=== PATIENT | male | born 1970 | race Caucasian/White ===

== ENCOUNTER 2018-12-23 14:07 | Emergency (ER) | payer OTHER ==
[~2018-12-23] VITALS: Ht 180.3 cm; Wt 77.1 kg
[2018-12-23 15:42] VITALS: BP 142/86
[2018-12-23] MEDS ORDERED: HYDROcodone/APAP 5/325MG 1 TAB TABLET PO ONE (16:30)
[2018-12-23] MEDS ORDERED: LIDOCAINE WITH 8.4% SOD BICARB 3 ML DISP.SYRIN. INJ ONE (16:30)
--- NOTE | 2018-12-23 16:42 | RAD ---
Examination: FINGER(S) LEFT History: Thumb laceration Comparison/Correlation: None Findings: Total of 3 images of the left thumb were obtained. Laceration injury involving the soft tissues is noted at the palmar aspect of the distal phalanx of the thumb. Few punctate densities deep within the soft tissues are present. Questionable deformity of the distal phalanges of the thumb on the PA view of the hand is noted but no corresponding findings are delineated on the other projections provided. Impression: Soft tissue laceration. A few punctate densities raise question of foreign bodies or possibly bony fracture fragments as deformity of the distal bony phalanx of the thumb is questioned on a single image of the 3 provided. Electronically signed by: Misha Liriano MD (12/23/2018 4:27 PM) [facility]
[2018-12-23] MEDS ORDERED: PIPERACILLIN/TAZOBACTAM 3.375 GM in IV NORMAL SALINE 50ML 50 ML IV ONE (17:15)
[2018-12-23] MEDS ORDERED: HYDR-3164 PO (18:23)
[2018-12-23] MEDS ORDERED: CEPH500T PO (18:23)
--- NOTE | 2018-12-23 18:23 | PHYS DOC ---
Past Medical History Past Medical History: Hepatitis Past Surgical History: No Surgical History Alcohol Use: Occasionally Drug Use: Marijuana Adult General Chief Complaint Chief Complaint: LACERATION/AVULSION HPI HPI Patient is a 48 year old male patient who presents to the ED today with left thumb laceration, patient states he was working with a table saw that accidentally cut him. Patient is right-handed. Review of Systems Review of Systems Constitutional: Denies fever or chills [] Musculoskeletal: Denies back pain or joint pain [] Integument: Reports left thumb laceration Neurologic: Denies headache, focal weakness or sensory changes [] ] All other systems were reviewed and found to be within normal limits, except as documented in this note. Current Medications Current Medications Current Medications Medications (Trade) Dose Ordered Sig/Aleida Start Time Stop Time Status Last Admin Dose Admin Acetaminophen/ Hydrocodone Bitart (Lortab 5/325) 2 tab 1X ONCE 12/23/18 16:30 12/23/18 16:31 DC 12/23/18 16:33 2 TAB Lidocaine HCl (Buffered Lidocaine 1%) 6 ml 1X ONCE 12/23/18 16:30 12/23/18 16:31 DC 12/23/18 16:32 6 ML Piperacillin Sod/ Tazobactam Sod 3.375 gm/Sodium Chloride 50 ml @ 100 mls/hr 1X ONCE 12/23/18 17:15 12/23/18 17:44 DC 12/23/18 17:15 100 MLS/HR Allergies Allergies Allergies Coded Allergies Type Severity Reaction Last Updated Verified No Known Drug Allergies 12/23/18 No Physical Exam Physical Exam Constitutional: Well developed, well nourished, no acute distress, non-toxic appearance. [] Skin: Left ventral thumb but distal and with a laceration approximately 3 cm long, there is no obvious tendon involvement, patient able to flex and extend the thumb with no difficulties. +2 left radial pulse. Adequate radial sensation to the left thumb. Cap refill less than 2 seconds the right fingers. Back: No tenderness, no CVA tenderness. [] Extremities: No tenderness, no cyanosis, no clubbing, ROM intact, no edema. [] Neurologic: Alert and oriented X 3, normal motor function, normal sensory function, no focal deficits noted. [] Psychologic: Affect normal, judgement normal, mood normal. [] Current Patient Data Vital Signs Vital Signs Date Time Temp Pulse Resp B/P (MAP) Pulse Ox O2 Delivery O2 Flow Rate FiO2 12/23/18 16:33 Room Air 12/23/18 15:42 97.8 82 12 142/86 (104) 100 97.8 EKG EKG [] Radiology/Procedures Radiology/Procedures [][]PROCEDURE: FINGER(S) LEFT Examination: FINGER(S) LEFT History: Thumb laceration Comparison/Correlation: None Findings: Total of 3 images of the left thumb were obtained. Laceration injury involving the soft tissues is noted at the palmar aspect of the distal phalanx of the thumb. Few punctate densities deep within the soft tissues are present. Questionable deformity of the distal phalanges of the thumb on the PA view of the hand is noted but no corresponding findings are delineated on the other projections provided. Impression: Soft tissue laceration. A few punctate densities raise question of foreign bodies or possibly bony fracture fragments as deformity of the distal bony phalanx of the thumb is questioned on a single image of the 3 provided. Electronically signed by: Terrance Marsh MD (12/23/2018 4:27 PM) [facility] DICTATED and SIGNED BY: TERRANCE MARSH MD DATE: 12/23/18 1627 Laceration/Wound Repair Wound Location: Left thumb Wound's Depth, Shape: Horizontal Wound Length (cm): Approximately 3 cm Wound Explored: clean Irrigated w/ Saline (ccs): 1000 Betadine Prep?: Yes Anesthesia: One percent of buffered lidocaine Volume Anesthetic (ccs): 6 Wound Repaired With: Internal laceration was closed with 2 interrupted sutures using 3. 0 Vicryl, external laceration was closed with approximately 15 interrupted sutures using 4.0 and 3. 0 Vicryl. Wound was covered with nonstick dressing. Splint was applied to the left thumb by ca. Neurovascular exam is intact post splint application. Course & Med Decision Making Course & Med Decision Making Pertinent Labs and Imaging studies reviewed. (See chart for details) This is a 48-year-old male patient who presents to the ED today with a left thumb laceration, was accidentally cut with a table saw. Left thumb x-rays was noted for fragments and open fracture of the distal phalanx. Discussed with patient care for open fractures including the need to be seen by a hand surgeon which we do not have in this hospital. Patient requested the laceration to be closed and he will follow-up with a hand surgeon of his choice. Patient's tetanus is up-to-date, Zosyn was given in the ED. Discharged on cephalexin. The laceration was closed by me and finger splinted as noted in procedures Dragon Disclaimer Dragon Disclaimer This electronic medical record was generated, in whole or in part, using a voice recognition dictation system. Departure Departure Impression: Primary Impression: Open fracture of left thumb Disposition: HOME, SELF-CARE Condition: STABLE Referrals: NON,STAFF (PCP) Please contact [facility] or any other hospital of your choice and follow-up with a hand surgeon Patient Instructions: Finger Fracture Additional Instructions: You have open fracture of the left thumb Please follow up with a hand surgeon of your choice in the course of this week Complete you antibiotics. Scripts Hydrocodone/Apap 5-325 (NORCO 5-325 TABLET) 1 Each Tablet 1 TAB PO Q6HRS, #12 TAB Prov: SHREYA GRIMALDO APRN 12/23/18 Cephalexin (CEPHALEXIN) 500 Mg Tablet 1 TAB PO QID, #40 TAB Prov: SHREYA GRIMALDO APRN 12/23/18 Problem Qualifiers Primary Impression: Open fracture of left thumb Encounter type: initial encounter Phalanx: proximal Fracture alignment: nondisplaced Qualified Codes: S62.515B - Nondisplaced fracture of proximal phalanx of left thumb, initial encounter for open fracture SHREYA GRIMALDO APRN Dec 23, 2018 18:23
== END 2018-12-23 18:23 | disposition home or self-care (01) ==
LOC: ER 14:07
DX: S62.515B Nondisplaced fracture of proximal phalanx of left thumb, initial encounter for open fracture (principal); W26.8XXA Contact with other sharp object(s), not elsewhere classified, initial encounter; Y93.89 Activity, other specified; Y92.89 Other specified places as the place of occurrence of the external cause; Y99.0 Civilian activity done for income or pay
CPT/HCPCS: 12002; 73140; 96365; 99284; J2543

== ENCOUNTER 2020-05-30 15:58 | Emergency (ER) | payer OTHER ==
[~2020-05-30] VITALS: Ht 180.3 cm; Wt 80.0 kg
[~2020-05-30 15:58] MED LIST: CEPH500T PO; HYDR-3164 PO
[2020-05-30 17:10] VITALS: BP 137/90
--- NOTE | 2020-05-30 17:18 | PHYS DOC ---
Past Medical History Past Medical History: Hepatitis, Seizure, Other Additional Past Medical Histor: HEP C Past Surgical History: No Surgical History Smoking Status: Current Every Day Smoker Alcohol Use: Heavy Drug Use: Marijuana General Adult EDM: Chief Complaint: SUTURE/STAPLE REMOVAL HPI: HPI: Patient is a 49 year old male who presents with had 2 artem placed in the top of his scalp after a laceration approximately 2 weeks ago. He states he has no pain, dizziness, discharge from the area, headache or signs of infection. Patient denies any pain at this time. Review of Systems: Review of Systems: Constitutional: Denies fever or chills. [] Eyes: Denies change in visual acuity. [] HENT: Denies nasal congestion or sore throat. [] Respiratory: Denies cough or shortness of breath. [] Cardiovascular: Denies chest pain or edema. [] GI: Denies abdominal pain, nausea, vomiting, bloody stools or diarrhea. [] : Denies dysuria. [] Musculoskeletal: Denies back pain or joint pain. [] Integument: Denies rash. + [place] in scalp [] Neurologic: Denies headache, focal weakness or sensory changes. [] Endocrine: Denies polyuria or polydipsia. [] Lymphatic: Denies swollen glands. [] Psychiatric: Denies depression or anxiety. [] Heart Score: C/O Chest Pain: No Risk Factors: Risk Factors: DM, Current or recent (<one month) smoker, HTN, HLP, family history of CAD, obesity. Risk Scores: Score 0 - 3: 2.5% MACE over next 6 weeks - Discharge Home Score 4 - 6: 20.3% MACE over next 6 weeks - Admit for Clinical Observation Score 7 - 10: 72.7% MACE over next 6 weeks - Early Invasive Strategies Allergies: Allergies: Allergies Coded Allergies Type Severity Reaction Last Updated Verified No Known Drug Allergies 12/23/18 No Physical Exam: PE: Constitutional: Well developed, well nourished, no acute distress, non-toxic appearance. [] HENT: Normocephalic, atraumatic, bilateral external ears normal, oropharynx moist, no oral exudates, nose normal. [] Eyes: PERRLA, EOMI, conjunctiva normal, no discharge. [] Neck: Normal range of motion, no tenderness, supple, no stridor. [] Cardiovascular:Heart rate regular rhythm, no murmur [] Lungs & Thorax: Bilateral breath sounds clear to auscultation [] Abdomen: Bowel sounds normal, soft, no tenderness, no masses, no pulsatile masses. [] Skin: Warm, dry, no erythema, no rash. 2 [place] removed from scalp on a well- healed laceration. [] Back: No tenderness, no CVA tenderness. [] Extremities: No tenderness, no cyanosis, no clubbing, ROM intact, no edema. [] Neurologic: Alert and oriented X 3, normal motor function, normal sensory function, no focal deficits noted. [] Psychologic: Affect normal, judgement normal, mood normal. [] EKG: EKG: [] Radiology/Procedures: Radiology/Procedures: [] Course & Med Decision Making: Course & Med Decision Making Pertinent Labs and Imaging studies reviewed. (See chart for details) 2 artem in the top of the scalp are removed. Edges are approximated and healed together. There is no redness, swelling, drainage, heat or signs of infection. There is no tenderness. [] Dragon Disclaimer: Dragon Disclaimer: This electronic medical record was generated, in whole or in part, using a voice recognition dictation system. Departure Departure Impression: Primary Impression: Visit for suture removal Disposition: 01 DC HOME SELF CARE/HOMELESS Condition: STABLE Referrals: NO PCP (PCP) Patient Instructions: Staple Removal, Care After Additional Instructions: Follow-up with a primary care provider if needed. CHELLY ROSS APRN May 30, 2020 17:18
== END 2020-05-30 17:22 | disposition home or self-care (01) ==
LOC: ER 15:58
DX: S01.01XD Laceration without foreign body of scalp, subsequent encounter (principal); R51.9 Headache, unspecified; K73.9 Chronic hepatitis, unspecified; F17.200 Nicotine dependence, unspecified, uncomplicated; F12.90 Cannabis use, unspecified, uncomplicated; F10.10 Alcohol abuse, uncomplicated; X58.XXXD Exposure to other specified factors, subsequent encounter
CPT/HCPCS: 99281